=== PATIENT | female | born 1945 | race Caucasian/White ===

== ENCOUNTER 2021-09-01 07:52 | Day surgery (SDC) | payer MEDICARE, OTHER ==
[2021-09-01] MEDS ORDERED: LACTATED RINGERS 1,000 ML IV ONE (08:38)
--- NOTE | 2021-09-01 09:43 | ANESTHESIA ---
Pre-Anesthesia VS, & Labs - Diagnosis history of colon polyps - Procedure colonoscopy Vital Signs: Temp Pulse Resp BP Pulse Ox 36.6 C 71 19 139/96 H 100 09/01/21 08:10 09/01/21 08:10 09/01/21 08:10 09/01/21 08:10 09/01/21 08:10 Height: 5 ft 7 in Weight (kg): 65 kg Body Mass Index: 22.4 BMI Classification: Healthy weight - NPO >8 hours Last Fluid Intake: 0400 h2o - Is Patient ?: No Home Medications and Allergies Home Medications: Ambulatory Orders Aspirin [[place] Aspirin EC] 1 tab PO DAILY 08/31/21 Calcium Carbonate [Calcium] 500 mg PO DAILY 08/31/21 Cholecalciferol (Vitamin D3) [Vitamin D3] 1,000 unit PO DAILY 08/31/21 Fluticasone [Flonase] 1 spray NS DAILY 08/31/21 Krill/[place]-3/Dha/Epa/Lipids [Krill Oil 350 mg Softgel] 1 cap PO DAILY 08/31/21 Letrozole 1 tab PO DAILY 08/31/21 Levothyroxine [Synthroid] 1 tab PO DAILY 08/31/21 Loratadine [Claritin] 1 tab PO HS 08/31/21 Magnesium 1 tab PO DAILY 08/31/21 Melatonin 5 mg PO DAILY 08/31/21 Multivit-Min/Iron/Folic/Lutein [Multivitamin Women 50 Plus Tab] 1 tab PO DAILY 08/31/21 Pantoprazole [Protonix] 1 tab PO DAILY 08/31/21 Pravastatin [Pravachol] 20 mg PO DAILY 08/31/21 Ubidecarenone [Co Q-10] 1 cap PO DAILY 08/31/21 flaxseed oiL [Flaxseed Oil] 1,000 mg PO DAILY 08/31/21 Aspirin [[place]cdonald Aspirin EC] 1 tab PO DAILY 08/31/21 Calcium Carbonate [Calcium] 500 mg PO DAILY 08/31/21 Cholecalciferol (Vitamin D3) [Vitamin D3] 1,000 unit PO DAILY 08/31/21 Fluticasone [Flonase] 1 spray NS DAILY 08/31/21 Krill/[place]-3/Dha/Epa/Lipids [Krill Oil 350 mg Softgel] 1 cap PO DAILY 08/31/21 Letrozole 1 tab PO DAILY 08/31/21 Levothyroxine [Synthroid] 1 tab PO DAILY 08/31/21 Loratadine [Claritin] 1 tab PO HS 08/31/21 Magnesium 1 tab PO DAILY 08/31/21 Melatonin 5 mg PO DAILY 08/31/21 Multivit-Min/Iron/Folic/Lutein [Multivitamin Women 50 Plus Tab] 1 tab PO DAILY 08/31/21 Pantoprazole [Protonix] 1 tab PO DAILY 08/31/21 Pravastatin [Pravachol] 20 mg PO DAILY 08/31/21 Ubidecarenone [Co Q-10] 1 cap PO DAILY 08/31/21 flaxseed oiL [Flaxseed Oil] 1,000 mg PO DAILY 08/31/21 Allergies/Adverse Reactions: Allergies Allergy/AdvReac Type Severity Reaction Status Date / Time No Known Drug Allergies Allergy Verified 08/31/21 12:45 Anes History & Medical History - Anesthetic History Anesthesia Complications: reports: No previous complications - Medical History Cardiovascular: reports: High cholesterol Pulmonary: reports: None Gastrointestinal: reports: Colon polyps, Hemorrhoids, Cholelithiasis Urinary: reports: None Neuro: reports: None Musculoskeletal: reports: Chronic back pain Endocrine/Autoimmune: reports: None Blood Disorders: reports: None Skin: reports: Rosacea Smoking Status: Never smoker Psychosocial: reports: No issues indicated History of Cancer?: Yes (breast cancer. s/p chemo) - Surgical History Eyes Ears Nose Throat (EENT): reports: Tonsil/Adenoidectomy Gynecologic: reports: Hysterectomy, Mastectomy Orthopedic: reports: Other Exam General: Alert, Oriented x3, Cooperative, No acute distress Dental: WNL Mouth Openin Fingerbreadth Neck Mobility: Normal Mallampati classification: II Thyromental Distance: less than 4 cm Mental/Cognitive Status: Alert/Oriented X3, Normal for patient Plan Anesthesia Type: General, Total IV Consent for Procedure(s) Verified and Reviewed: Yes Code Status: Attempt Resuscitation ASA classification: 2-Mild systemic disease Is this case an emergency?: No
[2021-09-01] MEDS ORDERED: PROPOFOL 500 MG/50 ML 500 MG/50 ML VIAL ONE (10:39)
[2021-09-01] MEDS ORDERED: LACTATED RINGERS 600 ML IV ONE (11:05)
[2021-09-01 11:29] VITALS: BP 212/81
--- NOTE | 2021-09-01 11:47 | ANESTHESIA POST OP EVALUATION ---
Anesthesia Post Eval - Post Anesthesia Eval Vitals: Last Vital Signs Temp 36.7 C 09/01/21 11:20 Pulse 70 09/01/21 11:20 Resp 16 09/01/21 11:20 BP 212/81 H 09/01/21 11:20 Pulse Ox 99 09/01/21 11:20 CV Function Including HR & BP: Stable Pain Control: Satisfactory Nausea & Vomiting: Negative Mental Status: Baseline Respiratory Status: Airway Patent Hydration Status: Satisfactory Anesthesia Complications: None
== END 2021-09-01 07:53 | disposition home or self-care (01) ==
LOC: SDS 07:52
PROVIDERS: ATTEND Surgery
DX: Z12.11 Encounter for screening for malignant neoplasm of colon (principal); K64.8 Other hemorrhoids; K64.4 Residual hemorrhoidal skin tags; Z83.71 Family history of colonic polyps; Z86.010 Personal history of colon polyps
CPT/HCPCS: G0105; J7120

== ENCOUNTER 2022-11-24 15:35 | Emergency (ER) | payer MEDICARE, OTHER ==
[2022-11-24 15:45] VITALS: BP 144/99
--- NOTE | 2022-11-24 15:57 | XRAY Report ---
PROCEDURE: Ankle 3 View RT INDICATIONS: SWELLING/PAIN/TENDERNESS R ANKLE TECHNIQUE: 3 views of the ankle were acquired. COMPARISON: None. FINDINGS: Bones: Acute comminuted fracture involving tip of lateral malleolus is seen with distal and medial d isplacement of fractured fragments. No other fracture or dislocation is noted. Ankle mortise is elizabeth lly aligned. No suspicious bony lesions. Soft tissues: Significant soft tissue swelling over lateral malleolus is seen. Small to moderate tibi otalar joint effusion. Achilles tendon appears normal. IMPRESSION: Acute comminuted and slightly displaced lateral malleolus tip fracture with overlying soft tissue swe lling. Reviewed by: Robert Shipley MD on 11/24/2022 3:56 PM PDT Approved by: Robert Shipley MD on 11/24/2022 3:56 PM PDT Station ID: [id number]
--- NOTE | 2022-11-24 16:09 | ED Physician Documentation ---
PD HPI LOWER EXT INJURY - Stated complaint Stated Complaint: R ANKLE PX - Chief complaint Chief Complaint: Ext Problem - History obtained from History obtained from: Patient, Family - History of Present Illness PD HPI LOW EXT INJURY LOCATION: Right, Ankle Type of injury: Fall Where injury occurred: Home Timing - onset: Today Timing - duration: Days (1) Timing - details: Gradual onset Pain level max: 5 Pain level now: 5 Improved by: Rest, Ice, Immobilization Worsened by: Moving, Palpating Associated symptoms: Swelling. No: Weakness, Numbness, Tingling Contributing factors: No: Anticoagulated, Prior ortho surgery, Prosthetic joint Similar symptoms before: Has not had sx before Recently seen: Not recently seen - Additional information Additional information: 77-year-old female presents to the emergency department stating that she was walking outside today carrying a load of wood when she tripped in a hole causing pain to the right ankle. PD PAST MEDICAL HISTORY - Past Medical History Cardiovascular: High cholesterol Respiratory: None Neuro: None Endocrine/Autoimmune: None GI: Colon polyps, Hemorrhoids, Cholelithiasis : None HEENT: Chronic sinusitis Psych: None Musculoskeletal: Chronic back pain Derm: Rosacea - Past Surgical History Ortho: Other /[employer]: Hysterectomy, Mastectomy HEENT: Tonsil/Adenoidectomy - Present Medications Home Medications: Ambulatory Orders Medication Instructions Recorded Confirmed Aspirin [[place] Aspirin EC] 1 tab PO DAILY 08/31/21 08/31/21 Calcium Carbonate [Calcium] 500 mg PO DAILY 08/31/21 08/31/21 Cholecalciferol (Vitamin D3) 1,000 unit PO DAILY 08/31/21 08/31/21 [Vitamin D3] Fluticasone [Flonase] 1 spray NS DAILY 08/31/21 08/31/21 Krill/[place]-3/Dha/Epa/Lipids 1 cap PO DAILY 08/31/21 08/31/21 [Krill Oil 350 mg Softgel] Letrozole 1 tab PO DAILY 08/31/21 08/31/21 Levothyroxine [Synthroid] 1 tab PO DAILY 08/31/21 08/31/21 Loratadine [Claritin] 1 tab PO HS 08/31/21 08/31/21 Magnesium 1 tab PO DAILY 08/31/21 08/31/21 Melatonin 5 mg PO DAILY 08/31/21 08/31/21 Multivit-Min/Iron/Folic/Lutein 1 tab PO DAILY 08/31/21 08/31/21 [Multivitamin Women 50 Plus Tab] Pantoprazole [Protonix] 1 tab PO DAILY 08/31/21 08/31/21 Pravastatin [Pravachol] 20 mg PO DAILY 08/31/21 08/31/21 Ubidecarenone [Co Q-10] 1 cap PO DAILY 08/31/21 08/31/21 flaxseed oiL [Flaxseed Oil] 1,000 mg PO DAILY 08/31/21 08/31/21 HYDROcod/ACETAM 5/325 [[place] 5/325] 1 - 2 ea PO Q6H PRN #14 tablet 11/24/22 - Allergies Allergies/Adverse Reactions: Allergies Allergy/AdvReac Type Severity Reaction Status Date / Time No Known Drug Allergies Allergy Verified 11/24/22 15:42 - Social History Smoking Status: Never smoker PD ED PE NORMAL - Vitals Vital signs reviewed: Yes - General General: Alert and oriented X 3, No acute distress - Derm Derm: Warm and dry - Extremities Extremities: Other (R ankle - TTP over the lateral malleolus. Neurovascular intact. Swelling present as well as ecchymosis. Otherwise normal examination of the foot and ankle. No tenderness over the base of the fifth metatarsal.) - Neuro Neuro: Alert and oriented X 3 - Psych Psych: Normal mood, Normal affect Results - Vitals Vitals: Vital Signs - 24 hr 11/24/22 15:36 Temperature 36.1 C L Heart Rate 77 Respiratory 19 Rate Blood Pressure 144/99 H O2 Saturation 98 Oxygen O2 Source Room air - Rads (name of study) Right ankle x-ray Relevant Findings:: Final report received, See rad report PD Medical Decision Making - ED course Complexity details: reviewed results, re-evaluated patient, considered audrey templeton, d/w patient, d/w family ED course: 77-year-old female with a comminuted fracture at the distal tip of the lateral malleolus of the right ankle. Patient was placed into a walking boot. Did not feel she would do well nonweightbearing on crutches. We will have her follow-up with orthopedics for further care. Neurovascular intact. We will prescribe pain medications for home as needed for breakthrough. Patient counseled regarding signs and symptoms for which I believe and urgent re-evaluation would be necessary. Patient with good understanding of and agreement to plan and is comfortable going home at this time This document was made in part using voice recognition software. While efforts are made to proofread this document, sound alike and grammatical errors may occur. Departure - Departure Disposition: 01 Home, Self Care Clinical Impression: Fracture, fibula Qualifiers: Encounter type: initial encounter Fibula location: lateral malleolus Fracture type: closed Fracture alignment: nondisplaced Laterality: right Qualified Code(s): S82.64XA - Nondisplaced fracture of lateral malleolus of right fibula, initial encounter for closed fracture Condition: Good Instructions: ED Fx Lower Ext Follow-Up: MELANIE MCLAUGHLIN DO [Primary Care Provider] - [facility] [Provider Group] - Within 1 week Prescriptions: HYDROcod/ACETAM 5/325 [[place] 5/325] 1 - 2 ea PO Q6H PRN #14 tablet PRN Reason: Pain Comments: Please follow-up with orthopedics for further care. Please return if you worsen. Your prescriptions were sent to the [facility] in [place]. Please stay in the walking boot is much as possible. You can use the Vicodin for breakthrough pain. You have a fracture at the distal tip of your fibula. These normally heal very well and usually do not require surgery. I am prescribing a short course of narcotic pain medication for you. These are potentially dangerous and addictive medications that should be used carefully. These medications may constipate you. Take an yaoh-mlz-lfshbwl stool softener (docusate) twice daily with plenty of water while taking these medications. If you go 24 hours without a bowel movement, take vzqq-lkg-[id number] miralax, per package instructions. Do not drink or drive while taking these medications. If you received narcotic or sedating medications while in the emergency department, do not drive for 24 hours. Store this medication in a safe, secure place and out of reach of children. It is a violation of federal law to give or sell this medication to another person or to use in a manner other than prescribed. The ED will not refill narcotic prescriptions, including prescriptions lost or stolen. To dispose of unwanted medications: 1. [facility] at [address] in [place] has a medication drop box. They accept prescription medications (in pill form) Tuesday through Tuesday 9:00 a.m. to 5:00 p.m. 2. The [facility] accepts prescription medications (in pill form only) for disposal year round. Call for more information. 3. Contact the [facility] for the next [facility] sponsored prescription drug collection event. , [phone], or [phone]; Discharge Date/Time: 11/24/22 16:43
[2022-11-24] MEDS ORDERED: HYDROcod/ACETAM 5/325 MG TABLET PO STA (16:14)
== END 2022-11-24 16:43 | disposition home or self-care (01) ==
LOC: ED 15:35
DX: S82.64XA Nondisplaced fracture of lateral malleolus of right fibula, initial encounter for closed fracture (principal); W17.2XXA Fall into hole, initial encounter; Y93.01 Activity, walking, marching and hiking; E78.00 Pure hypercholesterolemia, unspecified; Z79.82 Long term (current) use of aspirin; Z79.899 Other long term (current) drug therapy
CPT/HCPCS: 99283

== ENCOUNTER 2023-01-04 08:00 | Outpatient (CLI) | payer MEDICARE, OTHER ==
--- NOTE | 2023-01-04 18:25 | XRAY Report ---
PROCEDURE: Ankle 3 View RT INDICATIONS: RIGHT ANKLE FRACTURE TECHNIQUE: 3 views of the ankle were acquired. COMPARISON: 11/30/2022 FINDINGS: Bones: No significant change, tip of lateral malleolus minimally displaced fracture. Ankle mortise i ntact. Soft tissues: No tibiotalar joint effusion. Achilles tendon appears normal. IMPRESSION: Unchanged appearance of tip of lateral malleolus fracture. Reviewed by: Layo Knox MD on 01/04/2023 6:24 PM PDT Approved by: Layo Knox MD on 01/04/2023 6:24 PM PDT Station ID: [id number]
== END 2023-01-04 23:59 | disposition home or self-care (01) ==
LOC: DI.WOS 08:00
PROVIDERS: ATTEND Orthopaedic Surgery
DX: S82.64XD Nondisplaced fracture of lateral malleolus of right fibula, subsequent encounter for closed fracture with routine healing (principal)

== ENCOUNTER 2024-01-17 07:20 | Inpatient (IN) | payer MEDICARE, OTHER ==
[~2024-01-17 07:20] MED LIST: ACETAMINOPHEN 1,000 MG/100 ML 1,000 MG/100 ML BAG IV ONE; CELECOXIB 100 MG CAPSULE PO ONE; GABAPENTIN 400 MG CAPSULE ONE; ceFAZolin 2 GM VIAL ONE
[2024-01-17] MEDS ORDERED: BUPIVACAINE 0.5%-EPI 1:200000 PF 10 ML VIAL ONE (07:24)
[2024-01-17] MEDS: LACTATED RINGERS 1,000 ML IV ONE ×2 (07:48→12:46)
[2024-01-17] MEDS ORDERED: CEFOTETAN DISODIUM 2 GM in SODIUM CHLORIDE 0.9% MINIBAG 100 ML IV ONE (08:00)
--- NOTE | 2024-01-17 08:27 | ANESTHESIA ---
Pre-Anesthesia VS, & Labs - Diagnosis colon cancer - Procedure sigmoid colectomy Vital Signs: Temp Pulse Resp BP Pulse Ox O2 Flow Rate 36.2 C L 60 14 166/95 H 96 01/17/24 07:39 01/17/24 07:39 01/17/24 07:39 01/17/24 07:39 01/17/24 07:39 Height: 5 ft 7 in Weight (kg): 66.8 kg Body Mass Index: 23.1 BMI Classification: Normal - NPO >8 hours - Is Patient ?: No Home Medications and Allergies Active Medications Cefotetan Disodium 2 gm/ (Sodium Chloride) 100 mls @ 200 mls/hr IV ONCE ONE Stop: 01/17/24 08:29 Calcium Carbonate [Calcium] 500 mg PO DAILY 08/31/21 Cholecalciferol (Vitamin D3) [Vitamin D3] 1,000 unit PO DAILY 08/31/21 Fluticasone [Flonase] 1 spray NS DAILY 08/31/21 Krill/[place]-3/Dha/Epa/Lipids [Krill Oil 350 mg Softgel] 1 cap PO DAILY 08/31/21 Letrozole 1 tab PO DAILY 08/31/21 Levothyroxine [Synthroid] 1 tab PO DAILY 08/31/21 Loratadine [Claritin] 1 tab PO HS 08/31/21 Magnesium 1 tab PO DAILY 08/31/21 Melatonin 5 mg PO DAILY 08/31/21 Multivit-Min/Iron/Folic/Lutein [Multivitamin Women 50 Plus Tab] 1 tab PO DAILY 08/31/21 Pantoprazole [Protonix] 1 tab PO DAILY 08/31/21 Pravastatin [Pravachol] 20 mg PO DAILY 08/31/21 Ubidecarenone [Co Q-10] 1 cap PO DAILY 08/31/21 flaxseed oiL [Flaxseed Oil] 1,000 mg PO DAILY 08/31/21 Allergies/Adverse Reactions: Allergies Allergy/AdvReac Type Severity Reaction Status Date / Time propoxyphene AdvReac Nausea Verified 01/13/24 14:16 Anes History & Medical History - Anesthetic History Anesthesia Complications: reports: No previous complications - Medical History Cardiovascular: reports: Hypertension, High cholesterol, Other Pulmonary: reports: None, Sleep apnea Gastrointestinal: reports: GERD, Colon polyps, Hemorrhoids, Diverticulitis, Cholelithiasis, Other Urinary: reports: None Neuro: reports: None Musculoskeletal: reports: Chronic back pain Endocrine/Autoimmune: reports: None, HyPOthyroidism Blood Disorders: reports: None Skin: reports: Eczema, Rosacea Smoking Status: Never smoker - Surgical History Eyes Ears Nose Throat (EENT): reports: Tonsil/Adenoidectomy Gynecologic: reports: Hysterectomy, Mastectomy Orthopedic: reports: Other Exam General: Alert, Oriented x3, Cooperative Dental: WNL Mouth Opening: Greater than 4 Fingerbreadths Neck Mobility: Normal Mallampati classification: II Thyromental Distance: greater than 6 cm Respiratory: Lungs clear Cardiovascular: Regular rate Plan Anesthesia Type: General, Transverse Abdominis Plane (TAP) Block Consent for Procedure(s) Verified and Reviewed: Yes Code Status: Attempt Resuscitation ASA classification: 3-Severe systemic disease Is this case an emergency?: No
[2024-01-17] MEDS ORDERED: PROPOFOL 200 MG/20 ML VIAL IVP ONE (08:34)
[2024-01-17] MEDS ORDERED: fentaNYL 100 MCG/2 ML VIAL ONE (08:34)
[2024-01-17] MEDS ORDERED: LIDOCAINE-PF 2% 10 ML AMP SUBQ ONE (08:34)
[2024-01-17] MEDS ORDERED: ROCURONIUM 50 MG/5 ML VIAL ONE ×2 (08:34→12:27)
[2024-01-17] MEDS ORDERED: NALOXONE 0.4 MG/ML VIAL IVP PRN (11:26)
[2024-01-17] MEDS ORDERED: METOCLOPRAMIDE 10 MG/2 ML VIAL IVP PRN (11:26)
[2024-01-17] MEDS ORDERED: ATROPINE ABBOJECT 1 MG/10 ML SYRINGE IVP PRN (11:26)
[2024-01-17] MEDS ORDERED: ePHEDrine 50 MG/ML VIAL IVP PRN (11:26)
[2024-01-17] MEDS ORDERED: fentaNYL 100 MCG/2 ML VIAL IVP PRN (11:26)
[2024-01-17] MEDS ORDERED: MORPHINE 2 MG/ML CARPUJECT IVP PRN (11:26)
[2024-01-17] MEDS ORDERED: ONDANSETRON 4 MG/2 ML VIAL IVP PRN (11:26)
[2024-01-17] MEDS ORDERED: HYDROmorphone 0.5 MG/0.5 ML SYRINGE IVP PRN (11:26)
[2024-01-17] MEDS ORDERED: LACTATED RINGERS 1,000 ML IV SCH (12:00)
[2024-01-17] MEDS ORDERED: SUGAMMADEX 200 MG/2 ML VIAL IVP ONE (12:09)
[2024-01-17] MEDS ORDERED: HYDROmorphone 1 MG/ML CARPUJECT ONE (12:25)
--- NOTE | 2024-01-17 12:26 | OPERATIVE REPORT ---
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 - Other Other Information/Narrative: After verbal and written informed consent was obtained detailing the operation, the alternatives to the operation including no operation, risks of infection, bleeding requiring transfusion with its risks, nerve injury, and and after I met with the patient confirming the surgery, the patient was brought to the o perative suite and placed supine on the operating table. Great care was taken to avoid pressure points to prevent pressure necrosis or nerve injury. Monitoring devices were applied along with TEDs and pneumatic compressive stockings (to prevent DVT). The patient received preoperative antibiotics for surgical prophylaxis. Aleah Galarza CRNA sedated and anesthetized the patient for the entire procedure. The patient was prepped and draped in usual sterile manner. A "time in" then confirmed that the patient was identified with 3 identifiers (name, date, and medical record number), the history and physical was in the chart, the signed consent confirming the procedure was in the chart, the patient was in the correct position, the aforementioned prophylactic measures were in place were given, we had the correct personnel and equipment to complete the procedure and that anesthesia, and the surgical team was given an opportunity to express any concerns. With the agreement of every one in the room, we proceeded with the operation. I created a 8 cm midline infraumbilical incision using a #10 Bard scalpel and dissection was carried out down to the linea alba using Bovie electrocautery. Bovie electrocautery was used to control subcutaneous bleeders. The fascia was grasped with toothed graspers and incised in the midline as was the peritoneum gaining entry into the abdomen without incident. Manual examination of the abdomen revealed that the lesion in question was just above the pelvic brim. The small bowel was then packed away into the upper abdomen using a wet towel. A lateral to medial dissection was then begun. Dissection using Bovie electrocautery along the white line of T[place]t was continued up the left-hand side thus freeing the colon from the pelvic sidewall. At the pelvic brim there were dense adhesions of the colon to the pelvic brim these were carefully taken down using a combination of finger fracture, Bovie electrocautery, and right angle dissection. In this manner, the sigmoid colon and very most proximal rectum was freed from its attachments along the left wall. Attention was placed towards identifying the left ureter which it was and it was notably distant and posterior to our dissection. I transected the mid sigmoid colon with an application of the 75 SHAHEEN stapler. After transecting the mesentery in an anterior posterior manner the proximal sigmoid colon was then packed up alongside the small bowel to allow for the dissection into the pelvis without the colon in her way. The mesentery was then scored at the medial most portion with a Bovie and the mesentery was taken sequentially using serial application of the LigaSure. Larger vessels were tied using a 2-0 silk tie. I measured 5 cm beyond the mass and marked this area is my distal area of dissection. Once the rectum had been cleared of adherent fat as well as the attachments to the lateral pelvic fletcher a contour stapler was used to transect the proximal rectum. The specimen (consisting of mostly sigmoid with the very proximal rectum) was then delivered from the operative field. At this point Dr. Cabrera's very small hands allowed for mobilization of the splenic flexure through this very small and distal incision. This was done under direct vision with serial application of the LigaSure as well as Bovie electrocautery. This allowed the transected sigmoid colon to be brought down into the pelvis without any tension. Please note that without the assistance and contribution of Dr. Cabrera as well as Rukhsana Grigsby PA-C (primary assistant community director) the incision and the case would have been longer (significantly). The remaining sigmoid colon at the staple line was cleared of fatty attachments using serial application of Bovie electrocautery. After applying an automatic pursestring suture lift manager across the proximal sigmoid colon a pursestring was created using a 3-0 Prolene on a Steffen needle. The staple line was excised using Hobbs scissors. Great care was taken to ensure there was no spillage and in this opening was placed the anvil of a 29 EEA stapler. The pursestring suture was then tied tight around the post of the anvil. An additional 3-0 Vicryl suture was placed to ensure that there was a good pursestring. Rukhsana Mccall went below and after serial dilation of the anus with 1, 2 and 3 fingers with generous lubrication the 29 EEA stapler was inserted and it was brought to the rectal staple line under the direction of Dr. Cabrera and myself. The spike was brought out just anterior to the staple line and the post of the anvil was clipped over the spike. The spike was then withdrawn carrying the post with it and approximating the 2 ends of the bowel. At this point three 3-0 Vicryl Lembert sutures were placed, anteriorly, and on either side laterally. These were tied. The stapler was then fired creating the colocolostomy. The stapler was removed and 2 complete donuts were found and sent for evaluation of proximal and distal anastomoses. The abdomen was then filled with warm sterile saline and air was inserted into the patient's rectum with Dr. Cabrera's fingers across the colon to ensure that there was no leakage of air. After 3 insertions of air there was absolutely no leakage. The abdomen and pelvis were then copiously irrigated with 3 L warm sterile saline. There is no significant oozing or blood loss. Manual examination of the remainder of the abdomen was entirely normal. There were no liver lesions. The stomach itself appeared palpably normal. The ovaries were visibly and palpably normal. I close the fascia using an 0 looped PDS in a running fashion starting superiorly and ending inferiorly. The subcutaneous tissues were copiously irrigated using warm sterile saline. Hemostasis was obtained using Bovie elec trocautery. The subcutaneous tissues were loosely approximated using 3-0 Vicryl sutures. The skin was approximated using a 4-0 Monocryl in a running subcuticular fashion. The skin was cleaned of its prep and Dermabond was applied. At this point a "timeout" was performed that confirmed that all counts were correct, the procedure that was performed, the blood loss, the IV fluids administered, the patient's condition and any concerns of the operating team had. At this point TAP blocks were going to be placed. Having tolerated the procedure well, the patient was extubated and taken to recovery room in good and stable condition. CPT 50248 sigmoidectomy with low anastamosis CPT 58427 mobilization splenic flexure This document was created in part using voice recognition technology. Because of the inherent limitations of the system, occasional same sounding word substitutions and grammatical errors do occur and persist despite proofreading. Please read this document for context.
[2024-01-17] MEDS ORDERED: ONDANSETRON 4 MG/2 ML VIAL ONE (12:27)
[2024-01-17] MEDS ORDERED: DEXAMETHASONE 4 MG/ML VIAL ONE (12:27)
[2024-01-17] MEDS ORDERED: ePHEDrine 50 MG/ML VIAL IVP ONE (12:28)
--- NOTE | 2024-01-17 13:51 | ANESTHESIA POST OP EVALUATION ---
Anesthesia Post Eval - Post Anesthesia Eval Vitals: Last Vital Signs Temp 36.4 C L 01/17/24 13:40 Pulse 68 01/17/24 13:40 Resp 12 01/17/24 13:40 BP 110/78 01/17/24 13:40 Pulse Ox 99 01/17/24 13:40 O2 Flow Rate CV Function Including HR & BP: Stable Pain Control: Satisfactory Nausea & Vomiting: Negative Mental Status: Baseline Respiratory Status: Airway Patent Hydration Status: Satisfactory Anesthesia Complications: None
[2024-01-17] MEDS: CEFOTETAN DISODIUM 2 GM in SODIUM CHLORIDE 0.9% 100ML 100 ML IV ONE (13:59)
[2024-01-17] MEDS: LACTATED RINGERS 1,000 ML IV SCH (14:17)
[2024-01-18 05:57] LABS: BASOPHILS % (AUTO) 0.1 %; EOSINOPHILS % (AUTO) 0.1 %; HCT - HEMATOCRIT 38.2 % (37.0-47.0); HGB - HEMOGLOBIN 12.8 g/dL (12.0-16.0); LYMPHOCYTES # (AUTO) 1.3 10^3/uL (1.5-3.5); LYMPHOCYTES % (AUTO) 9.5 %; MEAN CORPUSCULAR HEMOGLOBIN 31.5 pg (27.0-31.0); MEAN CORPUSCULAR HGB CONC 33.5 g/dL (32.0-36.0); MEAN CORPUSCULAR VOLUME 94.1 fL (81.0-99.0); MEAN PLATELET VOLUME 10.4 fL (7.9-10.8); MONOCYTES # (AUTO) 1.4 10^3/uL (0.0-1.0); NEUTROPHILS # (AUTO) 11.1 10^3/uL (1.5-6.6); NEUTROPHILS % (AUTO) 80.1 %; PLT - PLATELET COUNT 197 10^3/uL (130-450); RED BLOOD COUNT 4.06 10^6/uL (4.20-5.40); RED CELL DISTRIBUTION WIDTH 13.2 % (12.0-15.0); WHITE BLOOD COUNT 13.9 x10^3/uL (4.8-10.8)
[2024-01-18 06:12] LABS: ALBUMIN 3.3 g/dL (3.2-5.5); ALBUMIN/GLOBULIN RATIO 1.5 (1.0-2.2); BILIRUBIN,TOTAL 0.5 mg/dL (0.2-1.0); CALCIUM 8.2 mg/dL (8.5-10.3); POTASSIUM 3.7 mmol/L (3.5-4.5); TOTAL PROTEIN 5.5 g/dL (6.4-8.9)
[2024-01-18] MEDS: PANTOPRAZOLE 40 MG TABLET PO SCH (06:38)
[2024-01-18] MEDS: PANTOPRAZOLE 40 MG VIAL IVP SCH (06:39)
[2024-01-18] MEDS: ENOXAPARIN 40 MG/0.4 ML SYRINGE SUBQ SCH (09:37)
[2024-01-18] MEDS: HYDROcod/ACETAM 5/325 MG TABLET PO PRN (12:05)
--- NOTE | 2024-01-18 14:18 | PHARMACY PROGRESS NOTE ---
- Best Possible Medication History Admit Date and Time: 01/17/24 0720 Processed by: Pharmacy Medications reviewed in ED?: No Medication History completed: Yes Patient Interview: Completed (by pharmacy billing adjudicatorKristen) Secondary Source(s): Physician records, Insurance records As the person ultimately responsible for medication therapy, providers are able to order a medication from an existing home medication list in [facility] via the "Reconcile Routine" prior to Confirmation of that medication by production support developer. Such practice is discouraged except when the physician, in their clinical judgment, deems that a medical need exists for a medication without regard to previous use.
--- NOTE | 2024-01-18 17:48 | PROVIDER PROGRESS NOTE ---
Subjective - General Admit Date: 01/17/24 Procedure Date: 01/17/24 Post Op Days: 1 Procedure Performed: Sigmoidectomy with mobilization of splenic flexure and colocolostomy - Review of Systems Wound/Incisions: positive: Healing well, Other (No ecchymosis). negative: Drainage, Erythema Drain Type: None. General: positive: No symptoms HEENT: positive: No symptoms Cardiovascular: positive: No symptoms Gastrointestinal: positive: Abdominal pain (Minimal - controlled with acetamino phen.), Flatus. negative: Nausea, Vomiting, Diarrhea, Melena, Hematochezia Genitourinary: positive: No symptoms Musculoskeletal: positive: No symptoms Skin: positive: No symptoms Psychiatric: positive: No symptoms Objective - Patient Data Reviewed Vital Signs: Yes Vital Signs: Vital Signs x48h Temp Pulse Resp BP Pulse Ox 01/18/24 15:45 36.3 C L 64 16 130/78 98 01/18/24 13:26 36.4 C L 67 18 121/76 99 Weight: Weight 01/16/24 01/17/24 01/18/24 23:59 23:59 23:59 Weight (kg) 66.8 kg Intake & Output: Intake and Output Totals x24h 01/16/24 01/17/24 01/18/24 23:59 23:59 23:59 Intake Total 757.5 1510.000 Output Total 1015 550 Balance -257.5 960.000 - Lab Results Lab Results: 01/18/24 05:13 01/18/24 05:13 Other Lab Results: Lab Results x24hrs 01/18/24 01/18/24 01/18/24 Range/Units 16:36 11:10 07:26 WBC (4.8-10.8) x10^3/uL RBC (4.20-5.40) 10^6/uL Hgb (12.0-16.0) g/dL Hct (37.0-47.0) % MCV (81.0-99.0) fL MCH (27.0-31.0) pg MCHC (32.0-36.0) g/dL RDW (12.0-15.0) % Plt Count (130-450) 10^3/uL MPV (7.9-10.8) fL Neut # (Auto) (1.5-6.6) 10^3/uL Lymph # (Auto) (1.5-3.5) 10^3/uL [place] # (Auto) (0.0-1.0) 10^3/uL Eos # (Auto) (0.0-0.7) 10^3/uL Baso # (Auto) (0.0-0.1) 10^3/uL Absolute Nucleated RBC x10^3/uL Nucleated RBC % /100WBC Sodium (135-145) mmol/L Potassium (3.5-4.5) mmol/L Chloride (101-111) mmol/L Carbon Dioxide (21-32) mmol/L Anion Gap (6-13) BUN (6-20) mg/dL Creatinine (0.6-1.3) mg/dL Estimated GFR (MDRD) (>89) Glucose (74-104) mg/dL POC Whole Bld Glucose 101 H 114 H 106 H (70 - 100) mg/dL Calcium (8.5-10.3) mg/dL Total Bilirubin (0.2-1.0) mg/dL AST (10-42) IU/L ALT (10-60) IU/L Alkaline Phosphatase (42-121) IU/L Total Protein (6.4-8.9) g/dL Albumin (3.2-5.5) g/dL Globulin (2.1-4.2) g/dL Albumin/Globulin Ratio (1.0-2.2) 01/18/24 01/18/24 Range/Units 05:13 05:13 WBC 13.9 H (4.8-10.8) x10^3/uL RBC 4.06 L (4.20-5.40) 10^6/uL Hgb 12.8 (12.0-16.0) g/dL Hct 38.2 (37.0-47.0) % MCV 94.1 (81.0-99.0) fL MCH 31.5 H (27.0-31.0) pg MCHC 33.5 (32.0-36.0) g/dL RDW 13.2 (12.0-15.0) % Plt Count 197 (130-450) 10^3/uL MPV 10.4 (7.9-10.8) fL Neut # (Auto) 11.1 H (1.5-6.6) 10^3/uL Lymph # (Auto) 1.3 L (1.5-3.5) 10^3/uL [place] # (Auto) 1.4 H (0.0-1.0) 10^3/uL Eos # (Auto) 0.0 (0.0-0.7) 10^3/uL Baso # (Auto) 0.0 (0.0-0.1) 10^3/uL Absolute Nucleated RBC 0.00 x10^3/uL Nucleated RBC % 0.0 /100WBC Sodium 135 (135-145) mmol/L Potassium 3.7 (3.5-4.5) mmol/L Chloride 101 (101-111) mmol/L Carbon Dioxide 27 (21-32) mmol/L Anion Gap 7.0 (6-13) BUN 15 (6-20) mg/dL Creatinine 1.0 (0.6-1.3) mg/dL Estimated GFR (MDRD) 53 L (>89) Glucose 122 H (74-104) mg/dL POC Whole Bld Glucose (70 - 100) mg/dL Calcium 8.2 L (8.5-10.3) mg/dL Total Bilirubin 0.5 (0.2-1.0) mg/dL AST 18 (10-42) IU/L ALT 12 (10-60) IU/L Alkaline Phosphatase 33 L (42-121) IU/L Total Protein 5.5 L (6.4-8.9) g/dL Albumin 3.3 (3.2-5.5) g/dL Globulin 2.2 (2.1-4.2) g/dL Albumin/Globulin Ratio 1.5 (1.0-2.2) - Current Medications Current Medications: Current Medications Generic Name Dose Route Start Last Admin Trade Name Freq PRN Reason Stop Dose Admin Hydrocodone Bitart/Acetaminophen 1 tab 01/18/24 11:44 01/18/24 12:05 Hydrocod/Acetam 5/325 Mg Tablet PO 1 tab Q4HR PRN Administration Severe Pain (Level 7-10) Enoxaparin Sodium 40 mg 01/18/24 09:00 01/18/24 09:37 Enoxaparin 40 Mg/0.4 Ml Syringe SUBQ Not Given DAILY ZENAIDA Lactated Ringer's 1,000 mls @ 50 mls/hr 01/17/24 14:00 01/18/24 16:49 Lr IV Infused .Q20H ZENAIDA Infusion Pantoprazole Sodium 40 mg 01/18/24 07:00 01/18/24 06:39 Pantoprazole 40 Mg Vial IVP Not Given QDAC ZENAIDA Pantoprazole Sodium 40 mg 01/18/24 07:00 01/18/24 06:38 Pantoprazole 40 Mg Tablet PO 40 mg QDAC ZENAIDA Administration - Physical Exam Wound/Incisions: positive: Healing well, Other (No ecchymosis.). negative: Drainage, Erythema General Appearance: positive: No acute distress, Alert Eyes Bilateral: positive: No lid inflammation, Conjunctivae nml, No scleral icterus ENT: positive: No signs of dehydration Neck: positive: Trachea midline Respiratory: positive: Chest non-tender, No respiratory distress, Breath sounds nml Cardiovascular: positive: Regular rate & rhythm, No murmur Abdomen: positive: Tenderness (Incisional and minimal.), Abnml bowel sounds (Slightly decreased.). negative: Guarding, Rebound Skin: positive: Color nml, No rash, Warm, Dry Extremities: positive: Non-tender, Nml appearance Neurologic/Psychiatric: positive: Oriented x3, Motor nml, Sensation nml, Mood/affect nml ABX Reporting Has patient been on IV antibiotics over the past 48 hours?: Yes Impression/Plan - Problem List Problem List: D1 s/p sigmoidectomy with colocolostomy and mobilization of splenic flexure in a 78 year old female on the ERAS protocol 1 FEN) Advance to general diet. Tolerating po well. 2) ID No sign of infection. Off antibiotics. 3) Activity Ambulating wonderfully. Using IS well. Chewing gum. 4) Pathology Pending but expecting diverticular stricture instead of malignancy - there was a polyp in the middle of the specimen (await that pathology). I visited with the patient this morning and again now. She is a model patient and is following instructions and recommendations well. I explained that the progress that occurred today is entirely due to her efforts. I instructed her to call with any questions or concerns.
[2024-01-18] MEDS: ACETAMINOPHEN 500 MG TABLET PO PRN (23:59)
[2024-01-19 07:51] VITALS: BP 118/83; O2SAT 97
--- NOTE | 2024-01-19 14:26 | Discharge Plan ---
Discharge Plan Problem Reviewed?: Yes Disposition: Home, Self Care Condition: Good Diet: Regular Activity Restrictions: No Restrictions (No lifting >15 pounds for 6 weeks then absolutely no restrictions.) Shower Restrictions: No Driving Restrictions: Yes (Until seen in office.) Weight Bearing: Full Weight Additional Instructions or Follow Up instructions: Call with any questions or concerns. I will review pathology during office visit. Bowel movements will normalize over the next 6 weeks. No Smoking: If you smoke, Please STOP! Call for help. Follow-up with: Regis Scales MD [Provider Admit Priv/Credential] -
--- NOTE | 2024-01-19 14:30 | DISCHARGE SUMMARY ---
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 - HPI History of Present Illness: See H&P for details but patient had a CT scan in 2022 showing sigmoid colon wall thickening and again this year with inability to pass colonoscope and subsequent BE showing apple core lesion. Patient's stools were pencil thin. No weight loss. - CONSULTS | PROCEDURES Procedures: Sigmoidectomy with mobilization splenic flexure and colocolostomy - HOSPITAL COURSE Hospital Course: Patient was started on ERAS protocol preoperatively and continued postoperatively. She followed the protocol above and beyond and is being sent home on POD2 tolerating a general diet, with good pain control (on tylenol), no evidence of infection, ambulating well. She is set to follow up with me on Tuesday. - ALLERGIES Allergies/Adverse Reactions: Allergies Allergy/AdvReac Type Severity Reaction Status Date / Time propoxyphene AdvReac Nausea Verified 01/13/24 14:16 - MEDICATIONS Home Medications: Ambulatory Orders Medication Instructions Recorded Confirmed Calcium Carbonate [Calcium] 500 mg PO DAILY 08/31/21 01/17/24 Cholecalciferol (Vitamin D3) 1,000 unit PO DAILY 08/31/21 01/17/24 [Vitamin D3] Fluticasone [Flonase] 1 spray HARPREET DAILY PRN 08/31/21 01/18/24 Krill/Lane-3/Dha/Epa/Lipids 1 cap PO DAILY 08/31/21 01/17/24 [Krill Oil 350 mg Softgel] Levothyroxine [Synthroid] 75 mcg PO QDAC 08/31/21 01/18/24 Loratadine [Claritin] 10 mg PO HS 08/31/21 01/18/24 Magnesium 250 mg PO DAILY 08/31/21 01/18/24 Melatonin 5 mg PO DAILY 08/31/21 01/17/24 Multivit-Min/Iron/Folic/Lutein 1 tab PO DAILY 08/31/21 01/17/24 [Multivitamin Women 50 Plus Tab] Pantoprazole [Protonix] 40 mg PO DAILY 08/31/21 01/18/24 Pravastatin [Pravachol] 20 mg PO DAILY 08/31/21 01/17/24 Ubidecarenone [Co Q-10] 1 cap PO DAILY 08/31/21 01/17/24 flaxseed oiL [Flaxseed Oil] 1,000 mg PO DAILY 08/31/21 01/17/24 Metoprolol Succinate [Toprol Xl] 25 mg PO DAILY 01/18/24 01/18/24 - PHYSICAL EXAM AT DISCHARGE General Appearance: positive: No acute distress Eyes Bilateral: positive: No lid inflammation, Conjunctivae nml, No scleral icterus ENT: positive: No signs of dehydration Neck: positive: Nml inspection, Trachea midline. negative: No JVD, Thyromegaly Respiratory: positive: Chest non-tender, No respiratory distress, Breath sounds nml Cardiovascular: positive: Regular rate & rhythm, No murmur Abdomen: positive: Nml bowel sounds, Tenderness (Minimal to no incisional tenderness), Other (Wound well approximated with subcuticular stitch and Dermabond. Minimal ecchymosis.) Skin: positive: Color nml, No rash, Warm, Dry Extremities: positive: Nml appearance. negative: Calf tenderness Neurologic/Psychiatric: positive: Oriented x3, Motor nml, Sensation nml, Mood/affect nml - LABS Result Diagrams: 01/18/24 05:13 01/18/24 05:13 - FOLLOW UP Follow Up: Tuesday with me. - TIME SPENT Time Spent in Discharge (Minutes): 45"
== END 2024-01-19 14:39 | disposition home or self-care (01) | DRG 330 ==
LOC: MS2 07:20
PROVIDERS: ADMIT Surgery; ATTEND Surgery
PROC: 0DBN0ZZ Excision of Sigmoid Colon, Open Approach (ICD-10-PCS; principal; 2024-01-17 08:30)
DX: D49.0 Neoplasm of unspecified behavior of digestive system (principal); K56.699 Other intestinal obstruction unspecified as to partial versus complete obstruction; Z87.19 Personal history of other diseases of the digestive system; K57.30 Diverticulosis of large intestine without perforation or abscess without bleeding; Z85.3 Personal history of malignant neoplasm of breast; E78.5 Hyperlipidemia, unspecified; K21.9 Gastro-esophageal reflux disease without esophagitis; I10 Essential (primary) hypertension; G47.30 Sleep apnea, unspecified; E03.9 Hypothyroidism, unspecified
CPT/HCPCS: 36415; 80053; 85025; A9270; J0131; J1170; J7120